=== PATIENT | female | born 1985 | race Two or more races ===

== ENCOUNTER → 2017-03-25 | Outpatient (CLI) | payer BC, OTHER ==
[2016-03-31 05:28] VITALS: BP 106/65
[~2017-03-25] MED LIST: PNV1TABL25 PO; POLY17PO29 PO
--- NOTE | 2017-03-25 10:30 | RAD ---
Obstetrical ultrasound, 03/25/2017: History: Small for dates Transabdominal scans were obtained. The uterus contains a single gestational sac. The gestational sac contains a yolk sac and a pole demonstrating a crown-rump length of 4 mm. This suggests a gestational age of 6 weeks and a sonographic EDC of 11/17/2017. cardiac activity is present. There is no evidence of subchorionic hemorrhage. The left ovary was not visualized. The right ovary is of normal size. It contains a 1.6 cm cyst. The adnexal regions are otherwise unremarkable. A trace amount of free fluid was noted in the pelvis. This amount of fluid can be on a physiologic basis. IMPRESSION: 1. Single viable intrauterine of 6 weeks gestational age. 2. Small right ovarian cyst.
== END | disposition home or self-care (01) ==
LOC: US 07:05
PROVIDERS: ATTEND Family Medicine
DX: O36.5910 Maternal care for other known or suspected poor fetal growth, first trimester, not applicable or unspecified (principal); N83.201 Unspecified ovarian cyst, right side; Z3A.01 Less than 8 weeks gestation of pregnancy
CPT/HCPCS: 76801

== ENCOUNTER 2017-11-01 17:18 | Inpatient (IN) | payer BC ==
[2017-11-01] MEDS ORDERED: ACETAMINOPHEN 325 MG TABLET. PO ×2 (19:15→22:00)
[2017-11-01] MEDS ORDERED: ONDANSETRON PF 4 MG/2 ML VIAL. IV (19:15)
[2017-11-01] MEDS ORDERED: TERBUTALINE 1 MG/ML VIAL. SQ (19:15)
[2017-11-01] MEDS ORDERED: LIDOCAINE 1% PF 30 ML VIAL. INJ (19:15)
[2017-11-01] MEDS ORDERED: OXYTOCIN 30 UNIT/500 ML PREMIX 500 ML IV ×2 (19:15)
[2017-11-01] MEDS ORDERED: fentaNYL PF VIAL 100 MCG/2 ML VIAL IV (19:15)
[2017-11-01] MEDS ORDERED: 0.9 % SODIUM CHLORIDE 10 ML DISP.SYRIN. IV ×2 (19:15→22:00)
[2017-11-01] MEDS ORDERED: IBUPROFEN 800 MG TABLET. PO ×2 (19:15→22:00)
[2017-11-01] MEDS ORDERED: IV RINGERS,LACTATED 1000ML 1,000 ML IV (19:30)
[2017-11-01] MEDS: PENICILLIN G K 5,000,000 UNIT in IV DEXTROSE 5% 100 ML IV (19:34)
[2017-11-01] MEDS ORDERED: L&D EPIDURAL 50 ML SYRINGE. EP (20:00)
[2017-11-01] MEDS ORDERED: ROPIVacaine 0.2% PF 10 ML VIAL. ×2 (20:00→21:09)
[2017-11-01] MEDS ORDERED: BUTORPHANOL 2 MG/ML VIAL. IV (20:00)
[2017-11-01] MEDS ORDERED: BUTORPHANOL 2 MG/ML VIAL. (20:00)
[2017-11-01 20:06] LABS: ADD MAN DIFF? NO
[2017-11-01 20:10] LABS: BASO # 0.1 x10^3/uL (0.0-0.2); BASO % 1 % (0-3); EOS % 0 % (0-3); HEMATOCRIT 35.1 % (36.0-47.0); HEMOGLOBIN 11.6 g/dL (12.0-15.5); LYMPH # 3.3 x10^3/uL (1.0-4.8); LYMPH % 31 % (24-48); MEAN CORPUSCULAR HEMOGLOBIN 30 pg (25-35); MEAN CORPUSCULAR HGB CONC 33 g/dL (31-37); MEAN CORPUSCULAR VOLUME 91 fL (79-100); MONO # 0.7 x10^3/uL (0.0-1.1); MONO % 7 % (0-9); NEUT # 6.5 x10^3uL (1.8-7.7); NEUT % 61 % (31-73); PLATELET COUNT 158 x10^3/uL (140-400); RED BLOOD COUNT 3.86 x10^6/uL (3.50-5.40); RED CELL DISTRIBUTION WIDTH 14.2 % (11.5-14.5); WHITE BLOOD COUNT 10.6 x10^3/uL (4.0-11.0)
[2017-11-01 20:55] LABS: PLT ESTIMATE ADEQUATE (ADEQUATE); POLYCHROMASIA SLIGHT; TOXIC GRANULATION MOD
[2017-11-01] MEDS ORDERED: L&D EPIDURAL SYRINGE 50 ML EP ×2 (21:09→22:00)
[2017-11-01] MEDS ORDERED: PHENYLEPH/MINERAL OIL/PETROLAT RECTAL OINTMENT 28GM TUBE. RC (22:00)
[2017-11-01] MEDS ORDERED: BUPIVACAINE MPF 0.25% 10 ML VIAL. EPI (22:00)
[2017-11-01] MEDS ORDERED: ROPIVacaine 0.2% IN 0.9%NACL PF 40 MG/20 ML DISP.SYRIN. EPI (22:00)
[2017-11-01] MEDS ORDERED: BENZOCAINE 20% TOPICAL AEROSOL SPRAY 57GM CAN. TP (22:00)
[2017-11-01] MEDS ORDERED: oxyCODONE/APAP 5/325 1 TAB TABLET PO (22:00)
[2017-11-01] MEDS ORDERED: MAG HYDROX/ALUMINUM HYD/SIMETH 30 ML ORAL.SUSP PO (22:00)
[2017-11-01] MEDS ORDERED: NALOXONE 0.4 MG/ML VIAL. IV (22:00)
[2017-11-01] MEDS ORDERED: HYDROCORTISONE 1% TOPICAL OINTMENT 30GM TUBE. TP (22:00)
[2017-11-01] MEDS ORDERED: fentaNYL PF VIAL 100 MCG/2 ML VIAL EPI (22:00)
[2017-11-01] MEDS ORDERED: ZOLPIDEM 5 MG TABLET. PO (22:00)
[2017-11-01] MEDS ORDERED: SIMETHICONE 80 MG TAB.CHEW PO (22:00)
[2017-11-01] MEDS ORDERED: MMR per PROTOCOL. MC (22:00)
[2017-11-01] MEDS ORDERED: MAGNESIUM HYDROXIDE 2,400 MG/30 ML ORAL.SUSP. PO (22:00)
[2017-11-01] MEDS ORDERED: diphenhydrAMINE HCL 25 MG CAPSULE PO (22:00)
[2017-11-01] MEDS: IV RINGERS,LACTATED 1000ML 1,000 ML IV (22:33)
[2017-11-01] MEDS: OXYTOCIN 30 UNIT/500 ML PREMIX 500 ML IV (22:34)
[2017-11-02] MEDS ORDERED: PENICILLIN G K 2,500,000 UNIT in IV DEXTROSE 5% 50 ML IV
[2017-11-02 05:16] LABS: ADD MAN DIFF? NO
[2017-11-02 05:22] LABS: BASO # 0.1 x10^3/uL (0.0-0.2); BASO % 0 % (0-3); EOS % 0 % (0-3); HEMATOCRIT 34.2 % (36.0-47.0); HEMOGLOBIN 11.1 g/dL (12.0-15.5); LYMPH # 1.5 x10^3/uL (1.0-4.8); LYMPH % 10 % (24-48); MEAN CORPUSCULAR HEMOGLOBIN 29 pg (25-35); MEAN CORPUSCULAR HGB CONC 32 g/dL (31-37); MEAN CORPUSCULAR VOLUME 90 fL (79-100); MONO # 0.8 x10^3/uL (0.0-1.1); MONO % 5 % (0-9); NEUT % 85 % (31-73); PLATELET COUNT 144 x10^3/uL (140-400); RED BLOOD COUNT 3.81 x10^6/uL (3.50-5.40); RED CELL DISTRIBUTION WIDTH 14.1 % (11.5-14.5); WHITE BLOOD COUNT 15.3 x10^3/uL (4.0-11.0)
[2017-11-02] MEDS ORDERED: FERROUS SULFATE 325 MG TABLET. PO (08:00)
[2017-11-02] MEDS: DOCUSATE SODIUM 100 MG CAPSULE. PO ×2 (08:21→20:53)
[2017-11-03] MEDS: DOCUSATE SODIUM 100 MG CAPSULE. PO (11:26)
[2017-11-03] MEDS ORDERED: TETANUS AND DIPHTHERIA TOX/PF 0.5 ML DISP.SYRIN. VAX IM (12:00)
[2017-11-03] MEDS: DIPHTH,PERTUSS(ACELL),TET TOX 0.5 ML DISP.SYRIN. VAX IM (12:12)
[2017-11-04 07:35] LABS: RPR Non Reactive (Non Reactive)
== END 2017-11-03 12:45 | disposition home or self-care (01) | DRG 775 ==
LOC: 3 SO LND 17:18
PROC: 10E0XZZ Delivery of Products of Conception, External Approach (ICD-10-PCS; principal; 2017-11-01)
PROC: 3E0R3BZ Introduction of Anesthetic Agent into Spinal Canal, Percutaneous Approach (ICD-10-PCS; 2017-11-01)
PROC: 00HU33Z Insertion of Infusion Device into Spinal Canal, Percutaneous Approach (ICD-10-PCS; 2017-11-01)
PROC: 0UQMXZZ Repair Vulva, External Approach (ICD-10-PCS; 2017-11-01)
DX: O99.824 Streptococcus B carrier state complicating childbirth (principal); O71.82 Other specified trauma to perineum and vulva; Z37.0 Single live birth; Z3A.37 37 weeks gestation of pregnancy
CPT/HCPCS: 36415; 85025; 86593; 86850; 86900; 86901; 90715; G0378; J2540; J2590; J2795; J7120

== ENCOUNTER 2020-05-11 14:09 | Emergency (ER) | payer BC ==
[~2020-05-11] VITALS: Ht 170.2 cm; Wt 61.4 kg
[~2020-05-11 14:09] MED LIST changes: +IBUP-1060 PO
[2020-05-11 14:38] LABS: BILIRUBIN,URINE NEGATIVE (NEG); CLARITY,URINE CLEAR; COLOR,URINE YELLOW; NITRITE,URINE NEGATIVE (NEG); PH,URINE 7.5 (<5.0-8.0); PROTEIN,URINE NEGATIVE (NEG-TRACE); UROBILINOGEN,URINE 0.2 mg/dL (0.2 mg/dL)
[2020-05-11 14:45] LABS: RBC,URINE TNTC /HPF (0-2)
[2020-05-11 14:46] LABS: BACTERIA,URINE MODERATE /HPF (0-FEW); SQUAMOUS EPITHELIAL CELL,UR MOD /LPF
--- NOTE | 2020-05-11 15:08 | PHYS DOC ---
Past Medical History Past Medical History: No Pertinent History Past Surgical History: No Surgical History Smoking Status: Never Smoker Alcohol Use: None General Adult EDM: Chief Complaint: VAGINAL BLEEDING HPI: HPI: Patient is a 35 year old female who presents with last menstrual period March 09 and 2 days ago she noticed that when she wiped she saw some dark brown mucus but okay per and on her panty liner. She states that she has not had any pain but her panty liner today had more of this dark brown mucus that she has seen prior hospital. She states that she called Dr Erickson who is her primary care and also her OB doctor who has delivered her last 2 children and they stated for her to come on into the emergency room and be checked. She states that she has not had her first OB exam with this . She states she has never had any problems with any of her pregnancies. She denies any past medical history. She states she is not been taking any medications and reports no drug or alcohol use. She denies any pain at this time. Review of Systems: Review of Systems: Constitutional: Denies fever or chills. [] Eyes: Denies change in visual acuity. [] HENT: Denies nasal congestion or sore throat. [] Respiratory: Denies cough or shortness of breath. [] Cardiovascular: Denies chest pain or edema. [] GI: Denies abdominal pain, nausea, vomiting, bloody stools or diarrhea. [] : Denies dysuria. Dark brown vaginal discharge. [] Musculoskeletal: Denies back pain or joint pain. [] Integument: Denies rash. [] Neurologic: Denies headache, focal weakness or sensory changes. [] Endocrine: Denies polyuria or polydipsia. [] Lymphatic: Denies swollen glands. [] Psychiatric: Denies depression or anxiety. [] Heart Score: Risk Factors: Risk Factors: DM, Current or recent (<one month) smoker, HTN, HLP, family history of CAD, obesity. Risk Scores: Score 0 - 3: 2.5% MACE over next 6 weeks - Discharge Home Score 4 - 6: 20.3% MACE over next 6 weeks - Admit for Clinical Observation Score 7 - 10: 72.7% MACE over next 6 weeks - Early Invasive Strategies Allergies: Allergies: Allergies Coded Allergies Type Severity Reaction Last Updated Verified No Known Drug Allergies 03/27/16 No Physical Exam: PE: Constitutional: Well developed, well nourished, no acute distress, non-toxic appearance. [] HENT: Normocephalic, atraumatic, bilateral external ears normal, oropharynx moist, no oral exudates, nose normal. [] Eyes: PERRLA, EOMI, conjunctiva normal, no discharge. [] Neck: Normal range of motion, no tenderness, supple, no stridor. [] Cardiovascular:Heart rate regular rhythm, no murmur [] Lungs & Thorax: Bilateral breath sounds clear to auscultation [] Abdomen: Bowel sounds normal, soft, no tenderness, no masses, no pulsatile masses. [] Skin: Warm, dry, no erythema, no rash. [] Back: No tenderness, no CVA tenderness. [] Extremities: No tenderness, no cyanosis, no clubbing, ROM intact, no edema. [] Neurologic: Alert and oriented X 3, normal motor function, normal sensory function, no focal deficits noted. [] Psychologic: Affect normal, judgement normal, mood normal. Normal Physical Exam[] Current Patient Data: Labs: Laboratory Tests Test 05/11/20 14:25 Urine Collection Type Unknown Urine Color Yellow Urine Clarity Clear Urine pH 7.5 (<5.0-8.0) Urine Specific [place] <=1.005 (1.000-1.030) Urine Protein Negative mg/dL (NEG-TRACE) Urine Glucose (UA) Negative mg/dL (NEG) Urine Ketones (Stick) Negative mg/dL (NEG) Urine Blood Large (NEG) Urine Nitrite Negative (NEG) Urine Bilirubin Negative (NEG) Urine Urobilinogen Dipstick 0.2 mg/dL (0.2 mg/dL) Urine Leukocyte Esterase Negative (NEG) Urine RBC Tntc /HPF (0-2) Urine WBC 5-10 /HPF (0-4) Urine Squamous Epithelial Cells Mod /LPF Urine Bacteria Moderate /HPF (0-FEW) Vital Signs: Vital Signs Date Time Temp Pulse Resp B/P (MAP) Pulse Ox O2 Delivery O2 Flow Rate FiO2 05/11/20 14:20 98.5 63 18 118/68 (85) 100 Room Air 98.5 EKG: EKG: [] Radiology/Procedures: Radiology/Procedures: [] Impression: [facility] [address] [place] [address] IMAGING REPORT Signed PATIENT: JAHAIRA NICHOLAS RACCOUNT: [id number] : 1985 LOCATION: ER AGE: 35 SEX: F EXAM STATUS: REG ER ORD. PHYSICIAN: MARGARITO CHONG APRN REASON: VAGINAL BLEEDING PROCEDURE: OB <14 WKS W/TV OB <14 WKS W/TV History: Reason: VAGINAL BLEEDING / Spl. Instructions: / History: Comparison: None. Technique: Grayscale and color Doppler imaging of the pelvis was performed using transabdominal technique. Findings: The uterus measures 9.8 x 5.4 x 5.4 cm. Intrauterine gestational sac with regular appearance. Yolk sac is identified. pole is identified with crown-rump length 0.32 cm. Estimated gestational age by ultrasound 6 weeks 0 days. No heart rate is identified. Right ovary measures 3 x 2.3 x 1.8 cm. Dominant right ovarian follicle. Left ovary measures 1.9 x 1.8 x 1.1 cm. Normal Doppler flow to the ovaries bilaterally. No adnexal masses are seen. IMPRESSION: 1. Single intrauterine with gestational age 6 weeks 0 days. No heart rate identified, may relate to early . Recommend short-term ultrasound follow-up and serial beta-hCG testing. Electronically signed by: Mk Flores DO (05/11/2020 4:37 PM) [facility] DICTATED and SIGNED BY: MK FLORES DO DATE: 05/11/20 1637 Course & Med Decision Making: Course & Med Decision Making Pertinent Labs and Imaging studies reviewed. (See chart for details) Abdomen soft and nontender. Alert and oriented x4. Speaks in full complete sentences. Skin is pink warm and dry. Vital signs within normal limits. Afebrile. Ambulatory with a steady gait. Patient denies nausea, vomiting, abdominal pain, chest pain, shortness of breath, diarrhea, constipation, dysuria symptoms, sexually transmitted disease concerns, dizziness, headache, fever, cough, back pain. Pelvic Exam: Customer Service Attendant present Abdomen: Nontender External Genitalia: Normal Skin Speculum: Normal vaginal mucosa, dark brown cervical discharge, Cervical os Closed Bimanual: No adnexal masses or tenderness, No CMT [] Patient has bacterial vaginosis. She will be discharged home with metronidazole. Patient to follow-up with her OB doctor as soon as possible. Patient is O+. IMPRESSION: 1. Single intrauterine with gestational age 6 weeks 0 days. No heart rate identified, may relate to early . Recommend short-term ultrasound follow-up and serial beta-hCG testing. Dragon Disclaimer: Dragon Disclaimer: This electronic medical record was generated, in whole or in part, using a voice recognition dictation system. Departure Departure Impression: Primary Impression: Vaginal bleeding affecting early Additional Impression: Bacterial vaginosis in Disposition: HOME, SELF-CARE Condition: STABLE Referrals: DIANA ERICKSON MD (PCP) Patient Instructions: Vaginal Bleeding During , First Trimester Additional Instructions: Follow-up with Dr. Erickson soon as possible. I would call the office tomorrow. If you begin having increased abdominal pain and going through more than 1 pad an hour return to the emergency room. Scripts Metronidazole (METRONIDAZOLE) 500 Mg Tablet 1 TAB PO BID for 7 Days, #14 TAB 0 Refills Prov: MARGARITO CHONG APRN 05/11/20 Justicifation of Admission Dx: Justifications for Admission: Justification of Admission Dx: N/A MARGARITO CHONG APRN May 11, 2020 15:08
[2020-05-11 15:21] LABS: BASO % 1 % (0-3); EOS % 1 % (0-3); HEMATOCRIT 39.3 % (36.0-47.0); HEMOGLOBIN 13.5 g/dL (12.0-15.5); LYMPH # 2.1 x10^3/uL (1.0-4.8); LYMPH % 29 % (24-48); MEAN CORPUSCULAR HEMOGLOBIN 33 pg (25-35); MEAN CORPUSCULAR HGB CONC 34 g/dL (31-37); MEAN CORPUSCULAR VOLUME 95 fL (79-100); MONO # 0.3 x10^3/uL (0.0-1.1); MONO % 4 % (0-9); NEUT # 4.6 x10^3/uL (1.8-7.7); NEUT % 66 % (31-73); PLATELET COUNT 216 x10^3/uL (140-400); RED BLOOD COUNT 4.13 x10^6/uL (3.50-5.40); RED CELL DISTRIBUTION WIDTH 12.6 % (11.5-14.5)
[2020-05-11 15:37] LABS: CALCIUM 9.2 mg/dL (8.5-10.1); CREATININE 0.8 mg/dL (0.6-1.0); GFR 82.1; POTASSIUM 3.9 mmol/L (3.5-5.1); PROTHROMBIN TIME PATIENT 12.9 SEC (11.7-14.0)
[2020-05-11 15:43] LABS: ALBUMIN 3.9 g/dL (3.4-5.0); ALBUMIN/GLOBULIN RATIO 1.3 (1.0-1.7); TOTAL BILIRUBIN 0.4 mg/dL (0.2-1.0); TOTAL PROTEIN 6.8 g/dL (6.4-8.2)
--- NOTE | 2020-05-11 16:40 | RAD ---
OB <14 WKS W/TV History: Reason: VAGINAL BLEEDING / Spl. Instructions: / History: Comparison: None. Technique: Grayscale and color Doppler imaging of the pelvis was performed using transabdominal technique. Findings: The uterus measures 9.8 x 5.4 x 5.4 cm. Intrauterine gestational sac with regular appearance. Yolk sac is identified. pole is identified with crown-rump length 0.32 cm. Estimated gestational age by ultrasound 6 weeks 0 days. No heart rate is identified. Right ovary measures 3 x 2.3 x 1.8 cm. Dominant right ovarian follicle. Left ovary measures 1.9 x 1.8 x 1.1 cm. Normal Doppler flow to the ovaries bilaterally. No adnexal masses are seen. IMPRESSION: 1. Single intrauterine with gestational age 6 weeks 0 days. No heart rate identified, may relate to early . Recommend short-term ultrasound follow-up and serial beta-hCG testing. Electronically signed by: Mk Flores DO (05/11/2020 4:37 PM) JEANINESHREYA
[2020-05-11 17:32] VITALS: BP 119/58
[2020-05-11] MEDS ORDERED: METR-34 PO (17:33)
[2020-05-13 17:09] LABS: GC PROBE Negative (Negative)
== END 2020-05-11 17:44 | disposition home or self-care (01) ==
LOC: ER 14:09
DX: O46.91 Antepartum hemorrhage, unspecified, first trimester (principal); N76.0 Acute vaginitis; B96.89 Other specified bacterial agents as the cause of diseases classified elsewhere; Z3A.01 Less than 8 weeks gestation of pregnancy
CPT/HCPCS: 36415; 76801; 76817; 80053; 81001; 81025; 84702; 85025; 85610; 86850; 86900; 86901; 87086; 87491; 87591; 99285; Q0111